=== PATIENT | female | born 1990 | race Caucasian/White ===

== ENCOUNTER 2023-03-21 13:25 | Emergency (ER) | payer MEDICAID ==
[~2023-03-21] VITALS: Ht 170.2 cm; Wt 80.7 kg
[2023-03-21 13:25] VITALS: BP_SYST 115; PULSE 85; RESP 18; TEMP 98.8; O2SAT 100
[2023-03-21 16:05] LABS: BASOPHILS % (AUTO) 0.6 % (0.0-2.0); EOSINOPHILS # (AUTO) 0.1 K/uL (0.0-0.4); EOSINOPHILS % (AUTO) 0.9 % (0.0-4.0); HEMATOCRIT 38.1 % (36-48); LYMPHOCYTES # (AUTO) 1.3 K/uL (1.0-5.5); MEAN CORPUSCULAR HEMOGLOBIN 30 pg (27-31); MEAN CORPUSCULAR HGB CONC 34 % (32-36); MEAN CORPUSCULAR VOLUME 86 fL (79.0-98.0); MONOCYTES # (AUTO) 0.6 K/uL (0.0-1.0); MONOCYTES % (AUTO) 8.6 % (1.7-9.3); NEUTROPHILS # (AUTO) 5.3 K/uL (1.8-7.7); NEUTROPHILS % (AUTO) 71.9 % (40.0-70.0); PLATELET COUNT (AUTO) 243 K/uL (130-430); RED BLOOD CELL COUNT(AUTO) 4.41 MIL/uL (4.2-6.2); RED CELL DISTRIBUTION WIDTH 12.3 % (9.0-15.0); WHITE BLOOD COUNT (AUTO) 7.3 K/uL (4.8-10.8)
[2023-03-21 16:07] LABS: CALCIUM 9.6 mg/dL (8.4-11.0); CREATININE 0.79 mg/dL (0.55-1.30); POTASSIUM 4.3 mmol/L (3.5-5.1)
[2023-03-21] MEDS ORDERED: ACET325T53 PO (18:25)
[2023-03-21 18:43] VITALS: BP_SYST 141; PULSE 81; RESP 17; TEMP 97.9; O2SAT 97
== END 2023-03-21 18:45 | disposition home or self-care (01) ==
LOC: SED 13:25
DX: M79.621 Pain in right upper arm (principal); M54.2 Cervicalgia; R22.31 Localized swelling, mass and lump, right upper limb; M54.6 Pain in thoracic spine; Z91.040 Latex allergy status; Z79.899 Other long term (current) drug therapy
CPT/HCPCS: 36415; 80048; 85025; 85610; 85730; 93880; 93971; 99284